=== PATIENT | male | born 2000 | race Caucasian/White ===

== ENCOUNTER 2020-12-19 23:44 | Emergency (ER) | payer BC, OTHER, SELFPAY ==
[2020-12-19 23:46] VITALS: BP 134/65; PULSE 66; RESP 20; TEMP 36.2; O2SAT 98; BMI 52.9
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
== END 2020-12-20 01:49 | disposition home or self-care (01) ==
PROVIDERS: Emergency Provider Emergency Medicine
DX: S39.012A Strain of muscle, fascia and tendon of lower back, initial encounter (principal); R07.9 Chest pain, unspecified; R51.9 Headache, unspecified; M25.551 Pain in right hip; R20.2 Paresthesia of skin; V47.5XXA Car driver injured in collision with fixed or stationary object in traffic accident, initial encounter; Y93.9 Activity, unspecified; Y92.9 Unspecified place or not applicable; Y99.9 Unspecified external cause status; E66.9 Obesity, unspecified; F17.200 Nicotine dependence, unspecified, uncomplicated
CPT/HCPCS: 70450; 72100; 72170; 99282

== ENCOUNTER 2021-11-27 23:29 | Emergency (ER) | payer OTHER, BC, SELFPAY ==
[2021-11-27 23:30] VITALS: BP 102/53; PULSE 125; RESP 23; TEMP 37; O2SAT 97; BMI 54.6
--- NOTE | 2021-11-27 23:59 | EKG12_ITS ---
Test Reason : CP Blood Pressure : / mmHG Vent. Rate : 120 BPM Atrial Rate : 120 BPM P-R Int : 158 ms QRS Dur : 096 ms QT Int : 326 ms P-R-T Axes : 027 -26 046 degrees QTc Int : 460 ms Sinus tachycardia Otherwise normal ECG Confirmed by SANDRA MCCLURE, KARAN ([id number]), medical transcription editor ALFONSO WARE ([id number]) on 12/01/2021 9:23:48 AM Referred By: COOPER Confirmed By:KARAN FLORES MD
--- NOTE | 2021-11-28 | RAD_ITS ---
STUDY: X-RAY CHEST REASON FOR EXAM: Male, 21 years old. chest pain TECHNIQUE: AP portable upright COMPARISON: None. FINDINGS: The lungs are clear and expanded. There is no demonstrated pleural abnormality. Normal size heart. Normal mediastinum and rodrigo. Normal visualized pulmonary arteries. Normal visualized aortic arch and descending thoracic aorta. Normal visualized thoracic spine. Normal visualized ribs, clavicles, and shoulders. There is no demonstrated abnormality of the visualized soft tissue structures of the upper abdomen. RAD/Chest 1 View (Portable) IMPRESSION: Normal x-ray examination of the chest. Electronically Signed: Burak Hurtado MD at 0:17 EDT ,
[2021-11-28] MEDS: Ondansetron ODT 4 MG Tablet PO (00:10)
--- NOTE | 2021-11-28 00:18 | EX.ED.SAOD ---
HPI History of Present Illness Chief Complaint: Substance Abuse Informant: patient, family and EMS Narrative Narrative: Patient is a 21-year-old male no significant past medical history presenting for chest discomfort and acute tox [place] with THC. Patient took 2 THC Gummies around 10 PM tonight. He just got them from a dispensary and never taken them before. He does not recall the strength of them. Shortly afterwards he started to have dizziness, nausea, multiple pills of vomiting and a sensation of chest discomfort. 911 was called he was brought to the emergency room for further evaluation. Patient denies any other drug use or alcohol use. Denies any cardiac history. Only medical history ported is a metal plate in his hip. Patient did tell EMS that he was having hallucinations of feeling like he was in a tunnel and a mild headache. PFSH PFSH Home Medications NK 12/19/20 [History Last Taken Unknown] Allergy/AdvReac Type Severity Reaction Status Date / Time No Known Allergies Allergy Verified 11/27/21 23:34 Social History Smoking Status: Current some day smoker tobacco type: cigarettes ROS ROS ED Constitutional Constitutional ED: Denies chills, fever(s) or sweats Eyes Eyes: Denies change in vision ENT ENT ED: Denies rhinorrhea or sore throat Cardiovascular Cardiovascular: Reports chest pain; Denies palpitations Respiratory/Chest Respiratory/Chest: Denies cough or dyspnea Gastrointestinal Gastrointestinal: Reports nausea and vomiting; Denies abdominal pain or diarrhea Musculoskeletal Musculoskeletal: Denies arthralgias or myalgias Integumentary Denies rash Neurologic Neurologic: Reports headache(s); Denies paresthesias or weakness Psychiatric Psychiatric: Reports other Details: drug use - THC ; Denies anxiety, depression, suicidal ideation or suicidal thoughts Allergic/Immunologic Allergic/Immunologic ED: Denies mouth swelling, tongue swelling or urticaria EXAM Physical Exam Const Vital Signs: 11/27/21 23:30 11/28/21 01:38 Temperature 98.6 F Temperature Source Temporal Pulse Rate 125 H 90 Respiratory Rate 23 H Blood Pressure 102/53 L Blood Pressure Mean 69 Pulse Ox 97 98 Oxygen Delivery Method Room Air Room Air Positive well nourished, well developed and obese General Appearance ED: well developed and NAD Nutritional Appearance: obese HEENT Reports TM's clear and moist mucous membranes atraumatic Tympanic Membrane ED: Yes TM's clear Eyes PERRL and EOMs intact bilaterally Eyes Narrative: Mild conjunctival injection Neck supple Neck Narrative: Normal range of motion, no meningeal signs Chest Wall inspection of chest normal and palpation of chest normal Chest Narrative: No chest wall crepitus appreciated. Resp normal respiratory effort and clear to auscultation bilaterally Cardio regular rhythm Rate: tachycardic GI soft to palpation, non-tender and non-distended Extremity General Extremety ED: Negative for edema or tenderness General Extremity: Negative for edema Neuro oriented x3 Neuro Narrative: Mildly somnolent. Answers questions appropriately. Clinically appears intoxicated consistent with THC Sensorium / Orientation: alert Psych mental status grossly normal and thought process normal Skin Lesions: no lesions Rashes: no rashes MDM MDM MDM Narrative Medical decision making narrative: Patient evaluated for chest discomfort and vomiting after taking edibles with THC. Patient's vital signs are significant for mild tachycardia which improved without any further intervention. 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 Given he did vomit will check a chest x-ray to look for signs of pneumomediastinum get an EKG to look for any type of acute abnormalities. EKG does show sinus tachycardia as interpreted by myself was otherwise normal. Chest x-ray interpreted by myself as well as radiology shows no acute process. Patient is given Zofran in the ER and on repeat evaluation is feeling much better and sleeping. He is comfortable going home to sleep. His parents will take him home. Given return precautions and encouraged to avoid use of THC edibles. Radiography Chest X-Ray - ED: 1 View, Read by ED Physician, Read by Radiologist and No Acute Disease Diagnostic Testing: Clinical Impression(s) from Imaging Studies Chest X-Ray 11/28/21 00:00 IMPRESSION: Normal x-ray examination of the chest. Electronically Signed: Burak Hurtado MD at 0:17 EDT , Rhythm Strip Rhythm Strip: Sinus Tach Rate: 120 Ectopy: None EKG Initial EKG: Attestation: I personally reviewed and interpreted this EKG as follows: Interpretation: Sinus Tachycardia Comments: Sinus tachycardia at a rate of 120 Normal axis Normal intervals Normal ST segments Discharge Plan Triage Chief Complaint: Substance Abuse ED Provider: Amber Callahan Dx/Rx/DC Orders Clinical Impression: Use of cannabinoid edibles, Tachycardia, Chest discomfort Instructions: ED Chest Pain, Noncardiac, ED Marijuana Abuse Prescriptions: No Action NK RF: 0 Primary Care Provider: Care Physician,No Primary Referrals: Care Physician,No Primary [Primary Care Provider] - Disposition Disposition: Home, Self Care
[2021-11-28 01:38] VITALS: PULSE 90; O2SAT 98
[2021-11-28 01:55] VITALS: BP 126/53; PULSE 83; RESP 16; O2SAT 98
== END 2021-11-28 01:56 | disposition home or self-care (01) ==
PROVIDERS: Emergency Provider Emergency Medicine; Visit Provider Emergency Medicine
DX: F12.129 Cannabis abuse with intoxication, unspecified (principal); R07.89 Other chest pain; R00.0 Tachycardia, unspecified; R11.2 Nausea with vomiting, unspecified; R51.9 Headache, unspecified; F17.210 Nicotine dependence, cigarettes, uncomplicated; E66.9 Obesity, unspecified
CPT/HCPCS: 71045; 93005; 99284; A4216

== ENCOUNTER 2022-04-26 02:34 | Emergency (ER) | payer OTHER, BC, SELFPAY ==
[2022-04-26 02:36] VITALS: BP 126/85; PULSE 74; RESP 18; TEMP 36.2; O2SAT 98; BMI 49.7
--- NOTE | 2022-04-26 02:50 | EKG12_ITS ---
Test Reason : CP Blood Pressure : / mmHG Vent. Rate : 080 BPM Atrial Rate : 080 BPM P-R Int : 152 ms QRS Dur : 088 ms QT Int : 386 ms P-R-T Axes : 010 -19 028 degrees QTc Int : 445 ms Normal sinus rhythm Normal ECG Confirmed by SANDRA MCCLURE, KARAN ([id number]), society editor ALFONSO WARE ([id number]) on 04/27/2022 10:09:53 AM Referred By: Confirmed By:KARAN FLORES MD
--- NOTE | 2022-04-26 02:50 | RAD_ITS ---
EXAM: XR CHEST, 1 VIEW CLINICAL INDICATION: chest pain chest pain TECHNIQUE: Frontal view of the chest. This report was created using [employer] report generation technology. COMPARISON: 11/27/2021. FINDINGS: LUNGS AND PLEURAL SPACES: Unremarkable. No consolidation or edema. No pneumothorax. No effusion. HEART: The heart size is probably normal, taking into account limited depth of inspiration as well as AP portable technique. MEDIASTINUM: Central airways and mediastinal contour are unremarkable. BONES/JOINTS: Unremarkable. SOFT TISSUES: Unremarkable. RAD/Chest 1 View (Portable) IMPRESSION: No acute findings in the chest. Electronically Signed: Cleve Kramer MD at 3:17 EDT Reading Location ID and State: [facility] / [place] , Service support ,
--- NOTE | 2022-04-26 02:54 | EDS_ITS ---
HPI History of Present Illness Chief Complaint: Chest Pain Informant: patient Narrative Narrative: 21-year-old male presenting to the emergency department with intermittent chest pain x1 week. He states that it goes away for few minutes and comes back. He cannot describe it but thinks it could be sharp burning pressure. He feels that it is midsternal. It is worse at nighttime. He does not associate it with any food. He notes that he is a smoker. He has no known medical problems PFSH PFSH Home Medications pantoprazole 40 mg tablet,delayed release (Protonix) 40 mg PO DAILY #30 tabs 04/26/22 [Rx Last Taken Unknown] Allergy/AdvReac Type Severity Reaction Status Date / Time No Known Allergies Allergy Verified 04/26/22 02:35 Surgical History History of hip surgery Social History (Updated 04/26/22 @ 02:[address] Van Duque DO) current gender identity: male Smoking Status: Current some day smoker tobacco type: cigarettes ROS ROS ED Constitutional Constitutional ED: Denies chills or weight loss Eyes Eyes: Denies change in vision or diplopia ENT ENT ED: Denies ear pain, rhinorrhea or sore throat Cardiovascular Cardiovascular: Reports chest pain; Denies orthopnea, palpitations or racing heartbeat Respiratory/Chest Respiratory/Chest: Denies cough, dyspnea or orthopnea Gastrointestinal Gastrointestinal: Denies abdominal pain, diarrhea, nausea or vomiting Genitourinary Genitourinary ED: Denies dysuria, hematuria or urinary frequency Musculoskeletal Musculoskeletal: Denies arthralgias or myalgias Integumentary Denies abscess or rash Neurologic Neurologic: Denies headache(s) or weakness Psychiatric Psychiatric: Denies anxiety, depression, suicidal ideation or suicidal thoughts Endocrine Endocrinology: Denies polydipsia, polyphagia or polyuria Allergic/Immunologic Allergic/Immunologic ED: Denies mouth swelling, tongue swelling or urticaria EXAM Physical Exam Const Vital Signs: 04/26/22 02:36 04/26/22 02:39 Temperature 97.1 F L Temperature Source Oral Pulse Rate 74 Respiratory Rate 18 Respiratory Pattern Normal Blood Pressure 126/85 H Blood Pressure Mean 98 Pulse Ox 98 Oxygen Delivery Method Room Air Positive well nourished and well developed General Appearance ED: well developed HEENT Reports normocephalic, head/scalp atraumatic and moist mucous membranes Eyes PERRL and EOMs intact bilaterally Neck no lymphadenopathy, supple and no JVD Chest Wall inspection of chest normal Resp normal respiratory effort and clear to auscultation bilaterally Cardio regular rate, regular rhythm and no murmurs GI normal to inspection, nondistended, normoactive bowel sounds and non-tender Palpation: soft Back/Spine no CVA tenderness and normal ROM Extremity normal to inspection General Extremety ED: Negative for edema General Extremity: Negative for edema Neuro oriented x3 and CN's II-XII intact bilaterally Sensorium / Orientation: alert Motor Exam: strength 5/5 throughout Psych mental status grossly normal Mood & Affect: Negative for depressed or tearful Skin no rashes or lesions noted and no wounds Heart Score History: Slightly/Non-Suspicious ECG: Normal Age: </= 45 years Risk Factors: 1 or 2 Risk Factors Troponin: </= Normal Limit Score: 1 MDM MDM MDM Narrative Medical decision making narrative: Basic blood work returned essentially normal. Normal lipase. Troponin is normal at 3. Interpretation of the chest x-ray is no acute process. Patient received a GI cocktail has been resting comfortably. Patient drinks a lot of pop, he is a smoker, the symptoms are worse at night, he has been taking Motrin for back pain. Going to make some lifestyle modifications place him on Protonix and have him follow-up with primary care. Return if worsening or concerns Lab Data Attestation: I reviewed the patient's lab results. Labs: Laboratory Results - last 24 hr 04/26/22 04/26/22 02:50 02:50 WBC 7.3 RBC 4.67 Hgb 14.3 Hct 41.6 MCV 89.1 MCH 30.6 MCHC 34.4 RDW Std Deviation 38.4 RDW Coeff of Mary 11.9 Plt Count 296 MPV 10.8 Immature Gran % (Auto) 0.100 Neut % (Auto) 54.8 Lymph % (Auto) 34.9 [place] % (Auto) 7.6 Eos % (Auto) 1.5 Baso % (Auto) 1.1 H Absolute Neuts (auto) 4.0 Absolute Lymphs (auto) 2.54 Nucleated RBC % 0 Sodium 140 Potassium 3.8 Chloride 108 H Carbon Dioxide 26.0 Anion Gap 6 BUN 10 Creatinine 0.86 Estim Creat Clear Calc 159.67 Est GFR (MDRD) Af Amer 141 Est GFR (MDRD) Non-Af 116 BUN/Creatinine Ratio 11.6 Glucose 100 Calcium 9.2 Total Bilirubin 0.40 AST 25 ALT 43 Alkaline Phosphatase 129 H Troponin I High Sens 3 Total Protein 7.8 Albumin 4.0 Globulin 3.8 Albumin/Globulin Ratio 1.1 Lipase 108 Radiography Diagnostic Testing: Clinical Impression(s) from Imaging Studies Chest X-Ray 04/26/22 02:50 IMPRESSION: No acute findings in the chest. Electronically Signed: Cleve Kramer MD at 3:17 EDT Reading Location ID and State: [facility] / [place] , Service support , EKG Initial EKG: Attestation: I personally reviewed and interpreted this EKG as follows: Comments: Normal sinus rhythm with a ventricular rate of 80 bpm. Discharge Plan Triage Chief Complaint: Chest Pain ED Provider: Van Duque Dx/Rx/DC Orders Clinical Impression: Chest pain, Gastroesophageal reflux disease Instructions: ED GERD (Adult) Prescriptions: New pantoprazole [Protonix] 40 mg tablet,delayed release (DR/EC) 40 mg PO DAILY Qty: 30 0RF Primary Care Provider: Care Physician,No Primary Referrals: Elena Viveros MD [Med Staff - Gumming Machine Operator] - 1-2 Weeks Care Physician,No Primary [Primary Care Provider] - Disposition Disposition: Home, Self Care
[2022-04-26 03:04] LABS: Absolute Lymphocyte Count 2.54 X10^3/uL (0.83-4.51); Basophil# 0.08 X10^3/uL; Basophil% 1.1 % (0-1); Eosinophil# 0.11 X10^3/uL; Eosinophils% 1.5 % (0-5); Hematocrit 41.6 % (40-54); Hemoglobin 14.3 g/dL (13.0-16.5); Lymphocyte # 2.54 X10^3/ul (0.83-4.51); Lymphocyte % 34.9 % (19-41); Mean Corp Hgb Conc 34.4 g/dL (32-36); Mean Corpuscular Hgb 30.6 pg (27.0-32.0); Mean Corpuscular Volume 89.1 fL (80-94); Mean Platelet Vol. 10.8 fl (6.2-12.0); Monocyte# 0.55 X10^3/uL; Monocyte% 7.6 % (0-10); NRBC Flagged by Analyzer 0 % (0-5); Neutrophil # 3.99 X10^3/uL (2.7-7.7); Neutrophil % 54.8 % (47-70); Platelet Count 296 K/mm3 (150-450); RBC Distribution Width CV 11.9 % (11.6-14.6); RBC Distribution Width SD 38.4 fl (35.1-43.9); Red Blood Count 4.67 M/mm3 (4.6-6.2); White Blood Count 7.3 K/mm3 (4.4-11.0)
[2022-04-26 03:20] LABS: ALB/GLOB Ratio 1.1 RATIO (0.9-2.4); AST(SGOT) 25 U/L (15-37); Alanine Aminotransfer ALT/SGPT 43 U/L (16-61); Alkaline Phosphatase 129 U/L (45-117); Anion Gap 6 (5-15); BUN 10 mg/dL (7-18); BUN/Creat Ratio 11.6 RATIO (10-20); Calcium,Total 9.2 mg/dL (8.5-10.1); Chloride 108 mmol/L (98-107); Creatinine, Serum 0.86 mg/dL (0.70-1.30); EST Glomerular Filtration Rate 116 mL/min (>60); Est Glom Filt Rate - Afr Amer 141 mL/min (>60); Estimated Creatinine Clearance 159.67 ml/min; Globulin 3.8 g/dL (2.2-4.2); Glucose 100 mg/dL (74-106); Lipase 108 U/L (73-393); Potassium 3.8 mmol/L (3.5-5.1); Protein, Total 7.8 g/dL (6.4-8.2); Sodium Level 140 mmol/L (136-145); Troponin-I HS 3 pg/mL (3.0-78.0)
[2022-04-26] MEDS: Mag Hydrox/Al Hydrox/Simeth 30 ML UDC PO (03:22)
[2022-04-26 03:46] VITALS: BP 120/47; PULSE 71; RESP 18; O2SAT 97
== END 2022-04-26 03:47 | disposition home or self-care (01) ==
PROVIDERS: Emergency Provider Emergency Medicine; Visit Provider Emergency Medicine
DX: R07.9 Chest pain, unspecified (principal); M54.9 Dorsalgia, unspecified; K21.9 Gastro-esophageal reflux disease without esophagitis; F17.210 Nicotine dependence, cigarettes, uncomplicated
CPT/HCPCS: 71045; 80053; 83690; 84484; 85025; 93005; 99285; A4216